=== PATIENT | female | born 2000 | race Two or more races ===

== ENCOUNTER 2022-05-23 19:54 | Emergency (ER) | payer MEDICAID, OTHER ==
[~2022-05-23] VITALS: Ht 154.9 cm; Wt 72.0 kg
[2022-05-23 19:54] VITALS: BP 136/92
== END 2022-05-23 23:50 | disposition left against medical advice (07) ==
LOC: ER 19:58
DX: R51.9 Headache, unspecified (principal); Z53.21 Procedure and treatment not carried out due to patient leaving prior to being seen by health care provider